=== PATIENT | female | born 1995 | race Caucasian/White ===

== ENCOUNTER 2019-04-25 01:59 | Emergency (ER) | payer OTHER ==
[~2019-04-25] VITALS: Ht 170.1 cm; Wt 83.9 kg
[~2019-04-25 01:59] MED LIST: ACYCLOVIR200 MG/5 M PO
[2019-04-25 02:02] VITALS: BP 119/66
[2019-04-25 02:28] LABS: BASO % 0.2 % (0.0-1.0); EOS # 0.1 10*3/uL (0.0-0.4); EOS % 1.8 % (1.0-4.0); HEMATOCRIT 34.6 % (37.0-47.0); LYMPH # 1.5 10*3/uL (1.3-4.4); LYMPH % 29.3 % (27.0-41.0); MEAN CELL VOLUME 89.9 fl (81.0-99.0); MEAN CORPUSCULAR HGB 28.6 pg (27.0-31.0); MEAN CORPUSCULAR HGB CONC 31.8 g/dl (33.0-37.0); MEAN PLATELET VOLUME 9.8 fl (9.6-12.3); MONO # 0.5 10*3/uL (0.1-1.0); MONO % 10.9 % (3.0-9.0); NEUT # 2.8 10*3/uL (2.3-7.9); NEUT % 57.4 % (47.0-73.0); PLATELET COUNT AUTOMATED 155 10*3/uL (130-400); RED BLOOD COUNT 3.85 10*6/uL (4.10-5.10); RED CELL DISTRI WIDTH 13.8 % (0-14.5)
[2019-04-25 02:44] LABS: ALBUMIN 3.7 gm/dl (3.1-4.5); ALKALINE PHOSPHATASE 67 U/L (45-117); BUN 10 mg/dl (7-24); CHLORIDE 107 mmol/L (98-107); CREATININE 0.67 mg/dL (0.55-1.02); POTASSIUM 3.6 mmol/L (3.5-5.1); SGOT/AST 7 IU/L (3-35); SODIUM 139 mmol/L (136-145); TOTAL PROTEIN 7.3 gm/dL (6.4-8.2)
[2019-04-25 02:45] LABS: SGPT/ALT 14 U/L (12-78)
== END 2019-04-25 03:21 | disposition home or self-care (01) ==
LOC: ED 01:59
PROVIDERS: Student in an Organized Health Care Education/Training Program
DX: O03.9 Complete or unspecified spontaneous abortion without complication (principal); Z3A.01 Less than 8 weeks gestation of pregnancy; Z88.1 Allergy status to other antibiotic agents; Z88.2 Allergy status to sulfonamides; Z88.8 Allergy status to other drugs, medicaments and biological substances

== ENCOUNTER 2019-05-14 01:01 | Emergency (ER) | payer OTHER ==
[~2019-05-14] VITALS: Ht 170.1 cm; Wt 83.9 kg
[2019-05-14] MEDS ORDERED: CIPRO500 MG PO (02:19)
[2019-05-14] MEDS ORDERED: MACROBID100 M1 PO ×2 (04:18→04:44)
[2019-05-14] MEDS ORDERED: ATIVAN0.5 MG PO (04:44)
[2019-05-14] MEDS ORDERED: ZOFRAN4 MG PO (04:48)
[2019-05-14 04:49] VITALS: BP 122/81
== END 2019-05-14 05:29 | disposition home or self-care (01) ==
LOC: ED 01:01
DX: G43.909 Migraine, unspecified, not intractable, without status migrainosus (principal); R11.2 Nausea with vomiting, unspecified; F41.9 Anxiety disorder, unspecified; Z88.1 Allergy status to other antibiotic agents; Z88.8 Allergy status to other drugs, medicaments and biological substances; Z88.2 Allergy status to sulfonamides